=== PATIENT | female | born 1970 | race Caucasian/White ===

== ENCOUNTER → 2018-01-03 | Outpatient (CLI) | payer OTHER ==
[~2018-01-03] MED LIST: ALEN70TA3 PO; ALEN70TA5 PO; BUTA-193 PO; CHOL200074 PO; CHOL500050 PO; ESTR0.753 PO; ESTR1.5T4 PO; HYDR10TA11 PO; HYDR5TAB2 PO; LEVO150T5 PO; LEVO175T5 PO; SUMA50TA4 PO; TOPI100T39 PO; ZOLP12.54 PO; florinef PO
== END | disposition home or self-care (01) ==
LOC: CFH 13:21
PROVIDERS: ATTEND Family Medicine
DX: Z12.31 Encounter for screening mammogram for malignant neoplasm of breast (principal)
CPT/HCPCS: 77067

== ENCOUNTER 2019-08-25 14:15 | Outpatient (CLI) | payer OTHER ==
[~2019-08-25 14:15] MED LIST changes: -ALEN70TA5 PO; +ALEN70TA6 PO; +ESTRADIOL; +FLORINEF; +HYDR-3590 PO; -HYDR10TA11 PO; +HYDR5TAB13 PO; -HYDR5TAB2 PO; +LEVO137T2 PO; +PANT40TA5 PO; +SUCR1TAB33 PO; -ZOLP12.54 PO; +ZOLP12.56 PO
[2019-08-25] MEDS ORDERED: TERI2.4P SC (14:53)
[2019-08-25] MEDS ORDERED: ESTR1TAB15 PO (14:53)
[2019-08-25] MEDS ORDERED: ONDA4TAB13 SL (14:53)
[2019-08-25] MEDS ORDERED: LEVO125T PO (14:53)
[2019-08-25] MEDS ORDERED: PANT40TA5 PO (14:53)
[2019-08-25] MEDS ORDERED: HYDR100V SC (14:53)
[2019-08-25] MEDS ORDERED: FLUD0.1T PO (14:53)
== END 2019-08-25 23:59 | disposition home or self-care (01) ==
LOC: STAR 14:15
PROVIDERS: ATTEND Internal Medicine Gastroenterology
DX: Z02.9 Encounter for administrative examinations, unspecified (principal)

== ENCOUNTER 2019-09-04 12:45 | Day surgery (SDC) | payer OTHER ==
[~2019-09-04] VITALS: Ht 175.3 cm; Wt 70.0 kg
[~2019-09-04 12:45] MED LIST changes: +ESTR1TAB15 PO; +FLUD0.1T PO; +HYDR100V SC; +LEVO125T PO; +ONDA4TAB13 SL; +TERI2.4P SC
[2019-09-04] MEDS ORDERED: LACTATED RINGERS 1,000 ML IV SCH (12:56)
[2019-09-04] MEDS ORDERED: CHLORHEXIDINE 15 ML UDC MM STA (12:58)
[2019-09-04 12:59] VITALS: BP 111/70
[2019-09-04] MEDS ORDERED: FENTANYL PF 100 MCG/2ML ONE (14:30)
[2019-09-04] MEDS ORDERED: PROPOFOL 10 MG/ML, 20ML ONE (14:35)
[2019-09-04] MEDS ORDERED: PROPOFOL 10 MG/ML, 50ML ONE (14:35)
[2019-09-04] MEDS ORDERED: HYDROmorphone 1 MG/ML, 1ML INJ IVPush PRN (15:00)
[2019-09-04] MEDS ORDERED: MEPERIDINE/PF 25MG/0.5ML IVPush PRN (15:00)
[2019-09-04] MEDS ORDERED: ONDANSETRON 2MG/ML, 2ML IVPush PRN (15:00)
[2019-09-04] MEDS ORDERED: EPHEDRINE 50 MG/ML, 1ML IM PRN (15:00)
[2019-09-04] MEDS ORDERED: EPHEDRINE 50 MG/ML, 1ML IVPush PRN (15:00)
[2019-09-04] MEDS ORDERED: OXYcodone 5 MG/5 ML ORAL.SOL UDC PO PRN (15:00)
[2019-09-04] MEDS ORDERED: METOPROLOL 1 MG/ML, 5ML IV PRN (15:00)
[2019-09-04] MEDS ORDERED: PROMETHAZINE 25 MG/ML, 1ML IVPush PRN (15:00)
[2019-09-04] MEDS ORDERED: DIAZEPAM 5 MG/ML, 2ML IVPush PRN (15:00)
[2019-09-04] MEDS ORDERED: DIPHENHYDRAMINE 50 MG/ML, 1ML IVPush PRN (15:00)
[2019-09-04] MEDS ORDERED: FENTANYL PF 100 MCG/2ML IV PRN (15:00)
== END 2019-09-04 16:25 | disposition home or self-care (01) ==
LOC: OUT 12:45
PROVIDERS: ATTEND Internal Medicine Gastroenterology
DX: R93.3 Abnormal findings on diagnostic imaging of other parts of digestive tract (principal); Z11.59 Encounter for screening for other viral diseases; K57.10 Diverticulosis of small intestine without perforation or abscess without bleeding; E27.1 Primary adrenocortical insufficiency
CPT/HCPCS: 36415; 43239; 43259; 87635; 88305; J2704; J7120; J3010